=== PATIENT | female | born 1970 | race Caucasian/White ===

== ENCOUNTER 2021-09-07 14:33 | Emergency (ER) | payer OTHER, SELFPAY ==
[2021-09-07 17:25] VITALS: BP 190/102; PULSE 86; RESP 19; TEMP 36.7; O2SAT 99; BMI 28.1
[2021-09-07 17:46] LABS: UTC Influenza A Antigen Negative (Negative); UTC Influenza B Antigen Negative (Negative)
--- NOTE | 2021-09-07 17:58 | HMH.EDUTC ---
[facility] Disposition Clinical Impression: URI (upper respiratory infection) Qualifiers: URI type: unspecified URI Qualified Code(s): J06.9 - Acute upper respiratory infection, unspecified Disposition: Home, Self-Care Condition on Discharge: Good Instructions: DI for Sinusitis, Sinusitis, Azithromycin Additional Instructions: *Monitor Temp, Over the counter Motrin or Tylenol as directed/as needed Tylenol every 4 hours and Motrin every 6 hours (as long as your family doctor has told you that you can take it) for fever or pain. and straight to ER if unable to lower temp less than 101.0 after medication given *Warm salt water gargles may help to soothe the throat *Throat Lozenges *Warm fluids like tea with honey may help to soothe the throat *Sleep elevated *Humidifier/Vaporizer Follow up with your [facility] Doctor for re-evaluation of blood pressure Follow up IMMEDIATELY for new or worsening symptoms or no Noticeable improvement over the next 48-72 hours. 911 for difficulty breathing or swallowing You were tested for today for COVID19 your test result should be back in the next 24-48 hours, you may Check your results on the [facility] My Health Portal if you have trouble logging on you may call You was given a handout with instructions for Self Quarantine and Self isolation for while you wait on test results and what to do if they are positive If you are positive the Health Dept will be contacting you also Make sure to take your Vitamins Vit. C Vit D and Zinc if you can take them Prescriptions: Benzonatate [Benzonatate 100mg cap] 100 mg PO Q8HP PRN #15 cap PRN Reason: Cough Transmission Status: Pending to What's in My Handbag # methylPREDNISolone [Medrol 4mg tab] 4 mg PO DIRECTED #21 tab Transmission Status: Pending to What's in My Handbag # Azithromycin [Z-Rubén 250mg Tab] 250 mg PO DIRECTED #6 tab Transmission Status: Pending to What's in My Handbag # Referrals: Provider,Referral, [Primary Care Provider] - As needed Forms: Work/School Release Time of Disposition: 18:09 Medical Decision Making - Blake Inquiry Pt receiving controlled substance: No Blake was queried for this patient: No Vital Signs: 09/07/21 17:25 Temperature 98.1 F Temperature Source Oral Pulse Rate [Right Brachial] 86 Respiratory Rate 19 Blood Pressure [Right Arm] 190/102 H Blood Pressure Mean [Right Arm] 131 Blood Pressure Source [Right Arm] Automatic Cuff Blood Pressure Position [Right Arm] Sitting 02 Sat by Pulse Oximetry 99 Oxygen Delivery Method Room Air - Lab Data Lab results reviewed: Yes: I reviewed the patient's lab results. Lab Results 09/07/21 17:36: Influenza Type A Ag Negative, Influenza Type B Ag Negative Medical Decision Narrative: rechecked blood pressure 169/93 [facility] HPI - General Stated complaint: weakness, cough,runny nose, headache Time Seen by Provider: 09/07/21 17:58 Mode of Arrival: Ambulatory Source of Information: Patient Limitations: No Limitations Description of Symptoms (Recalled from Triage Doc. by RN): PATIENT C/O RUNNY NOSE, COUGH AND WEAKNESS THAT STARTED TUESDAY NIGHT HEENT Symptoms (Recalled from RN notes): Yes Resp Symptoms (Recalled from RN notes): Yes Skin Symptoms (Recalled from RN notes): No MS Symptoms (Recalled from RN notes): No Functional Status (Recalled from RN notes): WNL - History of Present Illness Provider Complaint: Patient state that she has been having body aches, chills, sinus congestion and pressure, and over all not feeling well for several days States that she has taken OTC medications and it hasnt helped States that today she was still not feeling well so she came in Denies any known sick contacts - Related Data Previous Rx's Medication Instructions Recorded Azithromycin [Z-Rubén 250mg Tab] 250 mg PO DIRECTED #6 tab 09/07/21 Benzonatate [Benzonatate 100mg 100 mg PO Q8HP PRN #15 cap 09/07/21 cap] methylPREDNISolone [Medro
[2021-09-07 18:13] VITALS: BP 168/92; PULSE 86; RESP 19; TEMP 36.7; O2SAT 99
[2021-09-07 18:18] LABS: Adenovirus,PCR Not Detected (NotDetected); Bordetella Pertussis Not Detected (NotDetected); Chlamydophila Pneumoniae, PCR Not Detected (NotDetected); Coronavirus 19, PCR Not Detected (NotDetected); Coronavirus 229E Not Detected (NotDetected); Coronavirus NL63 Not Detected (NotDetected); Coronavirus OC43 Not Detected (NotDetected); Coronovirus HKU1,PCR Not Detected (NotDetected); Influenza A, PCR Not Detected (NotDetected); Influenza AH1, 2009 Not Detected (NotDetected); Influenza AH1, PCR Not Detected (NotDetected); Influenza AH3,PCR Not Detected (NotDetected); Influenza B, PCR Not Detected (NotDetected); Mycoplasma Pneumoniae, PCR Not Detected (NotDetected); Parainfluenza 1, PCR Not Detected (NotDetected); Parainfluenza 2, PCR Not Detected (NotDetected); Parainfluenza 3, PCR Not Detected (NotDetected); Parainfluenza 4, PCR Not Detected (NotDetected); Respiratory Syncytial Virus Not Detected (NotDetected); Rhinovirus/Enterovirus Not Detected (NotDetected)
[2021-09-08 02:42] LABS: Human Metapneumovirus Detected (NotDetected)
== END 2021-09-07 18:16 | disposition home or self-care (01) ==
PROVIDERS: Emergency Provider Nurse Practitioner
DX: J06.9 Acute upper respiratory infection, unspecified (principal); B34.8 Other viral infections of unspecified site
CPT/HCPCS: 87581; 87632; 87798; 87804; 99202; C9803; G0463; U0003; U0005

== ENCOUNTER → 2022-02-19 16:07 | Outpatient (CLI) | payer OTHER, SELFPAY ==
--- NOTE | 2022-02-19 16:10 | MM_ITS ---
PROCEDURE INFORMATION: Exam: Bilateral Screening 3D Mammography Exam date and time: 02/19/2022 4:19 PM Age: 51 years old Clinical indication: Screening examination TECHNIQUE: Imaging protocol: Bilateral Screening tomosynthesis and 2D mammography including computer-aided detection (CAD) when performed. COMPARISON: No relevant prior studies available. FINDINGS: MAMMOGRAPHY: Breast composition: The breast is heterogeneously dense, which may obscure small masses. Mass: None. Architectural distortion: No new or suspicious architectural distortion. Calcifications: Diffusely scattered bilateral benign-appearing calcifications are present. No new or suspicious cluster of microcalcifications have developed. Asymmetric density: No new or suspicious asymmetric density is present Skin thickening: None. Axillary adenopathy: None. IMPRESSION: No mammographic evidence of malignancy. Recommend annual screening mammography unless otherwise clinically indicated. ASSESSMENT: BI-RADS category 2: Benign
== END ==
PROVIDERS: Visit Provider Family Medicine
DX: Z12.31 Encounter for screening mammogram for malignant neoplasm of breast (principal)
CPT/HCPCS: 77063; 77067

== ENCOUNTER 2023-04-22 07:30 | Day surgery (SDC) | payer BC, SELFPAY ==
[2023-04-19 09:42] VITALS: BMI 28.1
[2023-04-22 07:46] VITALS: BP 118/68; PULSE 77; RESP 16; TEMP 36.1; O2SAT 99
--- NOTE | 2023-04-22 08:00 | P.PNANES_ITS ---
[facility] Disclaimer: The information contained in this section may have been updated after the patient was seen, as this information can be updated by other users. Surgical History (Updated 04/19/23 @ 09:41 by Madeleine Blanton RN) History of appendectomy History of hysterectomy Family History (Updated 04/19/23 @ 09:41 by Madeleine Blanton RN) Other Family history of Alzheimer's disease Family history of cancer Family history of diabetes mellitus type II Family history of myocardial infarction Family history of stroke Social History (Updated 04/19/23 @ 09:41 by Madeleine Blanton RN) Smoking Status: Current every day smoker tobacco type: cigarettes packs per day: 1 pack-years: 38 alcohol intake: current substance use type: denies use current occupational status: employed Travel in the last 8 weeks: [place] adopted: No caregiver/support person: No household members: none housing: house lives independently: Yes marital status: single education level: high school service: No senior care: No caffeine: Yes special [place] needs: No agree to transfusion: No do you feel safe at home: Yes victim of physical abuse: No victim of emotional abuse: No victim of sexual abuse: No would you like helpful sources: No [facility] Anesthesia Checklist Patient Identification Patient Identification: Verbal (Name & ) Structural Data Admitted From: Home Planned Operative Procedure/s: colonoscopy Consent for Planned Operative Procedure(s) Verified: Yes Airway Assessment Mallampati Score:: Class I C-Spine Mobility Assessed: Yes TMJ Mobility Assessed: Yes Dentition: Good Dentition Neurological Assessment Level of Consciousness: Awake, Alert and Appropriate Anesthesia Plan Anesthesia Risk discussed: Yes Anesthesia Plan: Verified ASA Class: II Anesthesia Type: MAC
[2023-04-22 08:07] VITALS: O2SAT 97
[2023-04-22 08:50] VITALS: BP 90/51; PULSE 61; RESP 18; TEMP 36.8; O2SAT 97
[2023-04-22 09:00] VITALS: BP 88/41; PULSE 74; RESP 18; O2SAT 99
--- NOTE | 2023-04-22 09:01 | HMH.SCOPE ---
Procedure: Date: 04/22/23 Patient Date of :: 1970 Procedure Performed:: Total colonoscopy to terminal ileum with polypectomy using cold snare and biopsy forceps Indications:: Patient is a 52-year-old female referred by Dr. Shepherd for initial screening colonoscopy Performing Provider:: Antonio Hoff MD Referring Provider:: Sourav Shepherd MD Sedation:: MAC sedation Procedure:: Patient history was obtained and appropriate physical examination was performed. Patient's medications and allergies were reviewed. Informed consent was obtained after explaining the benefits, alternatives, and risks of the procedure including, but not limited to, bleeding, perforation, missed lesions, and adverse reaction to anesthesia medications. Patient was transported to endoscopy procedure room. Patient was connected to monitoring devices. Throughout the procedure the patient's blood pressure, pulse, and oxygen saturations were monitored continuously. Patient identification and planned procedure were verified by the staff. Patient was positioned in lateral decubitus position. Digital anorectal exam was performed. Variable stiffness Olympus colonoscope was inserted and advanced under direct visualization to the cecum. Adequacy of the colonic preparation was noted. The colonoscope was advanced a short distance into the terminal ileum. The colonoscope was then slowly withdrawn while carefully examining the color, texture, anatomy, and integrity of the mucosoa circumferentially. Within the rectum retroflexion was performed. Colonoscope was then withdrawn. . There was some redundancy of the sigmoid colon which required some abdominal pressure for advancement of the colonoscope to the right colon. There was particulate liquid stool in the right colon which was able to be cleared. The appendiceal remnant was identified and the colonoscope was advanced into the terminal ileum. With thorough trans colonoscopic irrigation and suctioning colonoscope was withdrawn through the colon. In the proximal descending colon there is a tiny probable polyp removed with cold cutting snare. In the descending colon there were a couple of additional extremely tiny diminutive polyps removed with cold forceps. The rectosigmoid region there were a couple of diminutive hyperplastic appearing polyps removed with cold biopsy forceps. . Findings:: Diminutive polyps as stated above Mild sigmoid diverticulosis Recommendations:: Repeat colonoscopy pending pathology. Likely 3 to 5 years Complications:: None immediately apparent Estimated blood obtained (mL): 2 Colonoscopy Component Colonoscopy Component Was a colonoscopy performed during today's procedure?: Yes Recommended follow up colonoscopy of at least 10 years?: No If no, follow up colonoscopy recommended in ___ years?: Unclear Reason for not recommending >/= 10 yr follow-up interval?: Polyps
[2023-04-22 09:13] VITALS: BP 122/60; PULSE 71; RESP 18; O2SAT 100
== END 2023-04-22 09:20 | disposition home or self-care (01) ==
PROVIDERS: PCP Family Medicine; Visit Provider Surgery
PROC: 0DJD8ZZ Inspection of Lower Intestinal Tract, Via Natural or Artificial Opening Endoscopic (ICD-10-PCS; CPT 45385; principal; 2023-04-22 08:30)
DX: Z12.11 Encounter for screening for malignant neoplasm of colon (principal); K57.30 Diverticulosis of large intestine without perforation or abscess without bleeding; D12.4 Benign neoplasm of descending colon
CPT/HCPCS: 45385; 45380; J2704

== ENCOUNTER 2025-06-10 15:48 | Outpatient (CLI) | payer BC, SELFPAY ==
--- OUTSIDE RECORDS SUMMARY | 2024-03-02 10:15 | XMS_ITS ---
[facility] Address [address] [place] [id number] Care Team Providers Care Wire Winder Name Role Phone Sourav Shepherd Unavailable [phone] Allergies No Known Allergies Results Component Value Reference Range Notes Urinalysis - Inhouse Reviewed date:03/02/2024 03:37:55 PM Interpretation: Performing Lab: Notes/Report: Color/Clarity yellow/clear Leuk neg Nitrite neg Urobili 33 Protein neg pH 7.0 Blood 2+ Sp. Gr. 1.010 Ketone neg Bili neg TEN-UTI panel Reviewed date:03/05/2024 09:35:37 AM Interpretation:Negative Performing Lab: Notes/Report: Negative REASON FOR VISIT 6 month check, possible bladder infection Medications Medication SIG (Take, Route, Frequency, Duration) Notes Start Date End Date Status Unisom SleepTabs 25 MG 1 tab(s) orally o nce a day; Duration: 7 day(s) Active Vitamin B-12 250 MCG 1 tab(s) orally onc e a day; Duration: 30 day(s) Active Vitamin D3 10 MCG (400 UNIT) 1 tab(s) or ally once a day; Duration: 30 day(s) Active Triamcinolone Acetonide 0.1 % 1 belle applied topically 2 times a day 10/14/2022 Active buPROPion HCl 75 MG 1 tablet Orally Twic e a day; Duration: 90 days 04/13/2023 Active Lisinopril 30 MG 1 tab(s) orally once a day; Duration: 90 days Active Cranberry 250 MG as directed Orally Active Macrobid 100 MG 1 capsule with food Orally every 12 hrs; Duration: 5 day(s) 03/02/2024 Active Social History Tobacco Use: Social History Observation Description Date Details (start date - stop date) Current Smoker NA - NA CURRENT TOBACCO USE: Question Answer Notes Are you a: current smoker When did you start smoking? 16 y ears of age How often do you smoke cigarettes? every day How many cigarettes a day do you smoke? 6-10 1/2 a pack everyday Problems Problem Type SNOMED Code ICD Code Onset Dates Problem Status W/U Status Risk Notes Problem Pure hypercholesterolemia (854470202) Pure hypercholesterolemia (E78.00) Active confirmed Vital Signs Blood pressure systolic 132 mm Hg 03/02/20 24 Blood pressure diastolic 80 mm Hg 024 Heart Rate 114 /min 03/02/2024 Height 69 in 03/02/2024 Weight 196.4 lbs 03/02/2024 BMI 29.00 kg/m2 03/02/2024 Encounters Encounter Location Date Provider Diagnosis [facility] [address] [facility] [address] [place] [address], [place] [id number] 03/02/2024 Sourav Shepherd Primary hypertension I10 ; Acute UTI N39.0 ; Pure hypercholesterolemia E78.00 and Hyperglycemia R73.9 Assessments Encounter Date Diagnosis (ICD Code) Assessment Notes Treatment Notes Treatment Clinical Notes Section Notes 03/02/2024 Primary hypertension (ICD-10 - I10) 03/02/2024 Acute UTI (ICD-10 - N39.0) 03/02/2024 Pure hypercholesterolemia (ICD-10 - E78.00) 03/02/2024 Hyperglycemia (ICD-1 0 - R73.9) 03/02/2024 Other Patient will return to the office tomorrow morning for the following fasting labs: CMP, TSH w/ reflex, urine Microalb, A1c, Lipid Plan Of Treatment Medication Medication Name Sig Start Date Stop Date Notes Lisinopril 30 MG 1 tab(s) orally once a day; Duration: 90 days Macrobid 100 MG 1 capsule with food Orally every 12 hrs; Duration: 5 day(s) 03/02/2024 Treatment Notes Assessment Notes Other Patient will return to the office tomorrow morning for the following fasting labs: CMP, TSH w/ reflex, urine Microalb, A1c, Lipid Next Appt Details Follow Up: via phone to repo rt test results, Reason: Progress Notes * JOSEFINA ROSSI:1970 (54 yo F)Acc No.[id number]:03/02/2024 Progress Notes Patient: VANESA MCFARLAND Provider: Tone Shepherd M.D. :1970 A ge:53 Y S ex:Female Date:03/02/2024 Address:[address] [place] [address] , [place], [id number] Subjective: * Chief Complaints: * 1 . 6 month check, possible bladder infection. * HPI: C ardiology: 53 year old female presents with c/o Blood Pressure Elevated?Pt here for 6 mo f/u on hypertension, states she is doing well and does not have any concerns.? U rology: c/o frequent urination P t complains of frequent urinating with small amount of output, associated with discomfort that started last night. * ROS: D ERMATOLOGY: no R julius. n o H beata. G ASTROENTEROLOGY: no N ausea. n o V omiting. U ROLOGY: no D ifficulty urinating. n o B lood in urine. * Medical History: A llergic Rhinitis, Hypertension, Cigarette smoker, Colon polyps. * Surgical History: H ysterectomy 2008, Appendectomy 2015, colonoscopy 2022. * Hospitalization/Major Diagno stic Procedure: D enies Past Hospitalization. * Family History: F ather: alive. M other: alive. 2 brother(s) . . Diabetes:grandmother Hypertension:father and grandparents Stroke:grandmother Cancer:uncle and cousin. * Social History: C URRENT TOBACCO USE: Yes A re you a: c urrent smoker, W hen did you start smoking? 16 years of age, H ow often do you smoke cigarettes? e very day, H ow many cigarettes a day do you smoke? 6 -10 1/2 a pack everyday. C affeine: yes, frequency: coffee, tea, soft drinks (4-6 cups/drinks a day). Marital Status: . Alcohol: yes, Mixed drinks, 1/week. 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 Recreational drug use: no. * Medications: T aking Cranberry 250 MG Capsule as directed Orally , Taking Unisom SleepTabs 25 MG Tablet 1 tab(s) orally once a day , Taking Vitamin B-12 250 MCG Tablet 1 tab(s) orally once a day , Taking Vitamin D3 10 MCG (400 UNIT) Tablet 1 tab(s) orally once a day , Taking Triamcinolone Acetonide 0.1 % Cream 1 belle applied topically 2 times a day , Taking buPROPion HCl 75 MG Tablet 1 tablet Orally Twice a day , Taking Lisinopril 30 MG Tablet 1 tab(s) orally once a day , Medication List reviewed and reconciled with the patient * Allergies: N .K.D.A. Objective: * Vitals: W t:196.4, Temp:98.0, BP:132/80, HR:114, Nurse:marquez, Ht: 69, BMI:29.00. * Examination: C ardiology: General Appearance: p leasant, NAD. H EENT: u nremarkable. H eart sounds: R RR, normal S1, S2. L ungs: c lear, no rales or wheezes.?Extremities: n o leg edema. G eneral Examination: Back: no CVA tenderness. Assessment: * Assessment: 1. P rimary hypertension - I10 (Primary) 2 . A cute UTI - N39.0 ?3. P ure hypercholesterolemia - E78.00 4 . H yperglycemia - R73.9 Plan: * Treatment: 2. A cute UTI Start Macrobid Capsule, 100 MG, 1 capsule with food, Orally, every 12 hrs, 5 day(s), 10, Refills 0.? L AB: Urinalysis - Inhouse (Collection Date & Time - 03/02/2024) Value Reference Range C olor/Clarity yellow/clear * L euk neg * N itrite neg * U robili 33 * P rotein neg * p H 7.0 * B lood 2+ * S p. Gr. 1.010 * K etone neg * B luz neg * Mitra Fierro 03/02/2024 2:27:20 PM > , Provider reviewed results while patient in office. ?LAB: TEN-UTI panel (Collection Date & Time - 03/02/2024)?Negative* Bertha Reid 03/05/2024 9:26:4 2 AM > pt started on MacrobidKMitra villanueva 03/05/2024 9:34:52 AM > Pt informed of neg UTI panel 3.?Others? Notes: Patient will return to the office tomorrow morning for the following fasting labs: CMP, TSH w/ reflex, urine Microalb, A1c, Lipid?? * Procedure Codes: 8 1002 Urinalysis, no micro, 99041 SPECIMEN HANDLING * Follow Up: v ia phone to report test results * Images: Billing Information: * Visit Code: 37610 Office Visit, Est Pt., Level 4. * Procedure Codes: 33251 Urinalysis, no micro. 90056 SPECIMEN HANDLING. * Electronic signature of Mariah Shepherd MD on 06/10/2025 at 03:51 PM EDT Sign off status: Pending * Provider: Tone Shepherd M.D. Date: 0 03/02/2024 Generated for Memei ng/Ceciliag/eTransmitting on: 1 03:51 PM EDT History and Physical Notes * HPI (History of Present Illness) Category Sub-Category Detail Notes Category Not es Cardiology Blood Pressure Elevated Pt here for 6 mo f/u on hypertension, states she is doing well and does not have any concerns Urology frequent urination Pt complains of frequent urinating with small amount of output, associated with discomfort that started last night Examination Category Sub-Category Detail Notes Category Not es General Examination Back: no CVA tenderness Cardiology Lungs: clear, no rales or wheezes HEENT: unremarkable Heart sounds: RRR, normal S1, S2 Extremities: no leg edema General Appearance: pleasant, NAD
--- OUTSIDE RECORDS SUMMARY | 2024-03-03 04:35 | XMS_ITS ---
Author Organization [facility] Address [address] [facility] [address] [place] [id number] Care Team Providers Care Camera Repair Technician Name Role Phone Sourav Shepherd Unavailable [phone] Results Component Value Reference Range Notes Glycohemoglobin A1c (in hous e) Reviewed date:03/05/2024 09:49:57 AM Interpretation: Normal Performing Lab: Notes/Report: Normal glycohemoglobin 5.4% 5 - 6.5 % P-Comprehensive Metabolic Pa ashok (CMP) Reviewed date:03/05/2024 09:49:57 AM Interpretation: Normal Performing Lab: Notes/Report: CLIA: [id number] Daniel Castellon MD, [facility] [address] [place] [address] , [address], [place] [address] Test performed by [employer], [facility] Sodium 140 135-145 mmol/L Potassium 4.6 3.5-5.3 mmol/L Chloride 103 97-108 mmol/L CO2 22 22-32 mmol/L Glucose 95 65-99 mg/dL BUN 12 6-20 mg/dL Creatinine 0.90 0.50-1.00 mg/dL Calcium 9.6 8.6-10.4 mg/dL eGFR by Creatinine 75 >59 mL/min/1.73m2 Protein 7.1 6.0-8.3 g/dL Albumin 4.5 3.5-5.3 g/dL Alkaline Phosphatase 97 35-121 IU/L ALT (SGPT) 13 <5-47 IU/L AST (SGOT) 13 <5-40 IU/L Bilirubin, Total <0.2 <0.2-1.2 mg/dL A/G Ratio 1.7 1.1-2.5 mg/dL P-Lipid Panel Reviewed date:03/05/2024 09:49:57 AM Interpretation:chol 211, non-hdl 161, ldl 136 Performing Lab: Notes/Report: Test performed by [facility] [address] [place] [address] [address], [place] [address] Daniel Castellon MD, [facility] CLIA: [id number] Cholesterol 211 <200 mg/dL Triglycerides 126 <150 mg/dL HDL Cholesterol 50 >39 mg/dL Cholesterol / HDL Ratio 4.22 0.00-4.44 Ratio Non-HDL Cholesterol 161 <130 mg/dL LDL Cholesterol (Calculation) 136 <130 mg/dL LDL Cholesterol Levels* Less than 100 mg/dL Optimal 100 to 129 mg/dL Near Optimal/ Above Optimal 130 to 159 mg/dL Borderline High 160 to 189 mg/dL High 190 mg/dL and above Very High * Categories as recommended by the 2004 ATPIII guidelines LDL/HDL Ratio 2.7 <3.3 Ratio LDL Cholesterol Patient History Test Date: 02/11/2023 LDL Results: 132 Units: mg/dL % Change: - Test Date: 03/03/2024 LDL Results: 136 Units: mg/dL % Change: +3% P-TSH reflex to FT4 Reviewed date:03/05/2024 09:49:57 AM Interpretation: Normal Performing Lab: Notes/Report: Test performed by [facility] [address] , [address], [place] [address] Daniel Castellon MD, [facility]er CLIA: [id number] TSH reflex to FT4 1.57 0.43-5.25 mU/L P-Microalbumin/Creatinine, R andom Urine Sample Reviewed date:03/06/2024 11:48:37 AM Interpretation:not performed per pathgroup, needs recollected Performing Lab: Notes/Report: not performed per pathgroup, needs recollected REASON FOR VISIT LABS Medications Medication SIG (Take, Route, Frequency, Duration) Notes Start Date End Date Status Triamcinolone Acetonide 0.1 % 1 belle applied topically 2 times a day 10/14/2022 Active Lisinopril 30 MG 1 tab(s) orally once a day; Duration: 90 days Active buPROPion HCl 75 MG 1 tablet Orally Twic e a day; Duration: 90 days 04/13/2023 Active Macrobid 100 MG 1 capsule with food Orally every 12 hrs; Duration: 5 day(s) 03/02/2024 Active Vitamin D3 10 MCG (400 UNIT) 1 tab(s) or ally once a day; Duration: 30 day(s) Active Unisom SleepTabs 25 MG 1 tab(s) orally o nce a day; Duration: 7 day(s) Active Cranberry 250 MG as directed Orally Active Vitamin B-12 250 MCG 1 tab(s) orally onc e a day; Duration: 30 day(s) Active Encounters Encounter Location Date Provider Diagnosis [facility] [address] [facility] [address] [place] [phone] 03/03/2024 Sourav Sunset Primary hypertension I10 ; Pure hypercholesterolemia E78.00 ; Hyperglycemia R73.9 and Weight gain R63.5 Assessments Encounter Date Diagnosis (ICD Code) Assessment Notes Treatment Notes Treatment Clinical Notes Section Notes 03/03/2024 Primary hypertension (ICD-10 - I10) 03/03/2024 Pure hypercholesterolemia (ICD-10 - E78.00) 03/03/2024 Hyperglycemia (ICD-1 0 - R73.9) 03/03/2024 Weight gain (ICD-10 - R63.5) Plan Of Treatment No Information Progress Notes * KADE ROSSIB:1970 (54 yo F)Acc No.[id number]:03/03/2024 Patient: VANESA MCFARLAND Provider: Tone Shepherd M.D. :1970 A ge:53 Y S ex:Female Date:03/03/2024 Address:[address] [place] [address] , [place], [id number] Subjective: * Chief Complaints: * 1 . LABS. * Medical History: * Medications: T aking Cranberry 250 MG [...] tab(s) orally once a day , Taking Macrobid 100 MG Capsule 1 capsule with food Orally every 12 hrs , Medication List reviewed and reconciled with the patient Objective: * Vitals: Assessment: * Assessment: 1. P rimary hypertension - I10 (Primary) 2 . P ure hypercholesterolemia - E78.00 3 . H yperglycemia - R73.9 4 . W eight gain - R63.5? Plan: * Treatment: Value Reference Range A /G Ratio 1.7 1.1-2.5 - mg/dL * A lbumin 4.5 3.5-5.3 - g/dL * A lkaline Phosphatase 97 35-121 - IU/L * A LT (SGPT) 13 <5-47 - IU/L * A ST (SGOT) 13 <5-40 - IU/L * B ilirubin, Total <0.2 <0.2-1.2 - mg/dL * B UN 12 6-20 - mg/dL * C alcium 9.6 8.6-10.4 - mg/dL * C hloride 103 97-108 - mmol/L * C O2 22 22-32 - mmol/L * C reatinine 0.90 0.50-1.00 - mg/dL * G lucose 95 65-99 - mg/dL * P otassium 4.6 3.5-5.3 - mmol/L * S odium 140 135-145 - mmol/L * P rotein 7.1 6.0-8.3 - g/dL * e GFR by Creatinine 75 >59 - mL/min/1.73m2 * Bertha Ried 03/05/2024 9:49:5 1 AM >See phone encounter ?LAB: P-Microalbumin/Creatinine, Random Urine Sample (Collection Date & Time - 03/06/2024)?not performed per pathgroup, needs recollected* Bertha Reid 03/06/2024 11:48: 09 AM > patient to return to office next week sometime to drop off specimen. 2.?Pure hypercholesterolemia?LAB: P-Lipid Panel (Collection Date & Time - 03/03/2024 08:33 AM)?chol 211, non-hdl 161, ldl 136* Value Reference Range C holesterol / HDL Ratio 4.22 0.00-4.44 - Ratio * C holesterol 211 H <200 - mg/dL * H DL Cholesterol 50 >39 - mg/dL * L DL Cholesterol (Calculation) 136 H <130 - mg/d L * L DL/HDL Ratio 2.7 <3.3 - Ratio * N on-HDL Cholesterol 161 H <130 - mg/dL * T riglycerides 126 <150 - mg/dL * Bertha Reid 03/05/2024 9:49:5 1 AM >See phone encounter 3.?Hyperglycemia?LAB: Glycohemoglobin A1c (in house) (Collection Date & Time - 03/03/2024)? Normal* Value Reference Range g lycohemoglobin 5.4% 5 - 6.5 % * Mitra Fierro 03/03/2024 8:42:18 AM > Bertha Reid 03/05/2024 9:49:51 AM >See phone encounter 4.?Weight gain?LAB: P-TSH reflex to FT4 (Collection Date & Time - 03/03/2024 08:33 AM)? Normal* Value Reference Range T SH reflex to FT4 1.57 0.43-5.25 - mU/L * Bertha Reid 03/05/2024 9:49:5 1 AM >See phone encounter * Procedure Codes: 3 6416 CAPILLARY BLOOD DRAW, 84736 GLYCATED HEMOGLOBIN TEST, Modifiers: QW * Images: Billing Information: * Visit Code: * Procedure Codes: 20940 CAPILLARY BLOOD DRAW. 94533 GLYCATED HEMOGLOBIN TEST. Modifiers: QW * Electronic signature of Mariah Shepherd MD on 06/10/2025 at 03:51 PM EDT Sign off status: Pending * Provider: Tone Shepherd M.D. Date: 0 03/03/2024 Generated for Bryson conde/David/eTdannysmitting on: 1 03:51 PM EDT
--- OUTSIDE RECORDS SUMMARY | 2025-04-11 11:15 | XMS_ITS ---
Author Organization [facility] Address [address] [place] [phone] Care Team Providers Care Wad Impregnator Name Role Phone Sourav Shepherd Unavailable [phone] FloydNahed hanna Unavailable [phone] Allergies No Known Allergies Results Component Value Reference Range Notes Influenza Screen (in house) Reviewed date:04/12/2025 09:03:17 AM Interpretation: Performing Lab: Notes/Report: results neg CBC Fingerstick (in house) Reviewed date:04/12/2025 09:03:17 AM Interpretation: Performing Lab: Notes/Report: wbc 4.6 3.5 - 10 lym 47.7 15 - 50 mid 11.4 2 - 15 gran 40.9 35 - 80 rbc 4.30 3.5 - 5.5 hgb 12.7 11.5 - 16.5 hct 37.1 35 - 55 mcv 86.3 75 - 100 mch 29.4 25 - 35 mchc 34.1 31 - 38 plat 188 100 - 400 Covid test (in house) Reviewed date:04/12/2025 09:03:17 AM Interpretation: Performing Lab: Notes/Report: Result: neg REASON FOR VISIT sinus infection Medications Medication SIG (Take, Route, Frequency, Duration) Notes Start Date End Date Status Vitamin D3 10 MCG (400 UNIT) 1 tab(s) or ally once a day; Duration: 30 day(s) Active Triamcinolone Acetonide 0.1 % 1 belle applied topically 2 times a day 10/14/2022 Active buPROPion HCl 75 MG 1 tablet Orally Twic e a day; Duration: 90 days 04/13/2023 Active Lisinopril 30 MG 1 tab(s) orally once a day; Duration: 90 days Active Macrobid 100 MG 1 capsule with food Orally every 12 hrs; Duration: 5 day(s) 03/02/2024 Active Bromfed DM 2-30-10 MG/5ML 5-10 mL Orally four times a day, prn 04/11/2025 Active Cranberry 250 MG as directed Orally Active Unisom SleepTabs 25 MG 1 tab(s) orally o nce a day; Duration: 7 day(s) Active Vitamin B-12 250 MCG 1 tab(s) orally onc e a day; Duration: 30 day(s) Active Social History Tobacco Use: Social History Observation Description Date Details (start date - stop date) Current Smoker NA - NA CURRENT TOBACCO USE: Question Answer Notes Are you a: current smoker When did you start smoking? 16 y ears of age How often do you smoke cigarettes? every day How many cigarettes a day do you smoke? 6-10 1/2 a pack everyday Vital Signs Blood pressure systolic 146 mm Hg 04/11/20 25 Blood pressure diastolic 88 mm Hg 025 Heart Rate 94 /min 04/11/2025 Height 69 in 04/11/2025 Weight 205.6 lbs 04/11/2025 BMI 30.36 kg/m2 04/11/2025 Encounters Encounter Location Date Provider Diagnosis [facility] [address] [phone] 04/11/2025 Nahed Ca Acute URI J06.9 Assessments Encounter Date Diagnosis (ICD Code) Assessment Notes Treatment Notes Treatment Clinical Notes Section Notes 04/11/2025 Acute URI (ICD-10 - J06.9) fluids, rest, supportive measures Plan Of Treatment Medication Medication Name Sig Start Date Stop Date Notes Bromfed DM 2-30-10 MG/5ML 5-10 mL Orally four times a day, prn 04/11/2025 Treatment Notes Assessment Notes Acute URI fluids, rest, suppor tive measures Next Appt Details Follow Up: prn, Reason: Progress Notes * KADE ROSSIB:1970 (54 yo F)Acc No.[id number]:04/11/2025 Progress Notes Patient: Heather GUTIERREZCEEPRECIOUSA Provider: POLLY Leon :1970 A ge:54 Y S ex:Female Date:04/11/2025 Address:[facility] [address] , [place], [id number] Subjective: * Chief Complaints: * 1 . Sinus infection. * HPI: E NT/respiratory: Pt states these symptoms started Tuesday and its just getting worse. Pt states she has been around COVID. 54 year old female presents with c/o cough. c/o Fever?low grade. c/o ear pain b ilateral. c/o headache. c/o body aches. G astroenterology: c/o Diarrhea. * ROS: D ERMATOLOGY: no R julius. n o H beata. G ASTROENTEROLOGY: no N ausea. n o V omiting. n o D iarrhea.? U ROLOGY: no D ifficulty urinating. n o B lood in urine. * Medical History: A llergic Rhinitis, Hypertension, Cigarette smoker, Colon polyps. * Surgical History: H ysterectomy 2008, Appendectomy 2015, colonoscopy 2022. * Family History: F ather: alive. M [...] Alcohol: yes, Mixed drinks, 1/week. 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 Recreational drug use: no. * Medications: [...] Allergies: N .K.D.A. Objective: * Vitals: W t: 205.6, Temp: 98.3, BP: 146/88, HR: 94, Nurse: pe, Ht: 69, BMI:30.36. * Examination: E NT/Respiratory: General Appearance: N AD. E ars: a uditory canals normal bilaterally, TM's WNL. N ose : t urbinates red, congested. S inuses : t bonifacio maxillary sinuses bilaterally. O ral cavity : e rythema without exudate on pharynx. N shannon : n o cervical lymphadenopathy. H eart : R RR, normal S1 S2, no murmurs. L ungs:?clear to auscultation bilaterally. Assessment: * Assessment: 1. Homar holm URI - J06.9 (Primary) Plan: * Treatment: Value Reference Range r esults neg * Lashell Kate 04/11/2025 04 :24:25 PM EDT > Provider reviewed results while patient in office. ?LAB: CBC Fingerstick (in house) (Collection Date & Time - 04/11/2025)* Value Reference Range w bc 4.6 3.5 - 10 * l ym 47.7 15 - 50 * m id 11.4 2 - 15 * g ran 40.9 35 - 80 * r bc 4.30 3.5 - 5.5 * h gb 12.7 11.5 - 16.5 * h ct 37.1 35 - 55 * m cv 86.3 75 - 100 * m ch 29.4 25 - 35 * m chc 34.1 31 - 38 * p lat 188 100 - 400 * Lashell Kate 04/11/2025 04 :31:18 PM EDT > Provider reviewed results while patient in office. ?LAB: Covid test (in house) (Collection Date & Time - 04/11/2025)* Value Reference Range R esult: neg * Lashell Kate 04/11/2025 04 :23:54 PM EDT > Provider reviewed results while patient in office. Notes: fluids, rest, supportive measures?? * Procedure Codes: 8 7804 Flu Test- Nasal Swab, Modifiers: QW , 37166 CBC WITH AUTO DIFF, 32764 CAPILLARY BLOOD DRAW, 09688 COVID TEST IN HOUSE, Modifiers: QW * Follow Up: p rn * Images: Billing Information: * Visit Code: 48154 Office Visit, Est Pt., Level 3. * Procedure Codes: 40962 Flu Test- Nasal Swab. Modifiers: QW 65912 CBC WITH AUTO DIFF. 58267 CAPILLARY BLOOD DRAW. 92570 COVID TEST IN HOUSE. Modifiers: QW * Electronic signature of POLLY Hobbs on 06/10/2025 at 03:51 PM EDT Sign off status: Pending * Provider: POLLY Leon Date: 0 04/11/2025 Generated for Memei ng/Fajean-paulg/eTransmitting on: 1 03:51 PM EDT History and Physical Notes * HPI (History of Present Illness) Category Sub-Category Detail Notes Category Not es ENT/respiratory ear pain bilateral cough Fever low grade headache body aches Gastroenterology Diarrhea Examination Category Sub-Category Detail Notes Category Not es ENT/Respiratory Oral cavity : erythema without exudate on pharynx Sinuses : tender maxillary sin uses bilaterally Ears: auditory canals norm al bilaterally, TM's WNL Neck : no cervical lymphade nopathy Heart : RRR, normal S1 S2, n o murmurs Lungs: clear to auscultatio n bilaterally General Appearance: NAD Nose : turbinates red, luis daniel ested
--- OUTSIDE RECORDS SUMMARY | 2025-04-30 04:49 | XMS_ITS ---
Author Organization [facility] Address [address] [facility] [address] [address] [place] [phone] Care Team Providers Care Acquisition Professional Name Role Phone Chandler, Sourav Unavailable [phone] REASON FOR VISIT due faizan Encounters Encounter Location Date Provider Diagnosis [facility] [address] [place] [phone] 04/30/2025 Sourav Shepherd Breast cancer screening Z12.31 Assessments Encounter Date Diagnosis (ICD Code) Assessment Notes Treatment Notes Treatment Clinical Notes Section Notes 04/30/2025 Breast cancer screening (ICD-10 - Z12.31) Plan Of Treatment Pending Test Test Name Order Date Mammogram 04/30/2025 Progress Notes * KADE ROSSIB:1970 (54 yo F)Acc No.[id number]:04/30/2025 Patient: VANESA MCFARLAND :1970 A ge:54 Y S ex:Female Address:[address] [place], [address] Subjective: * Chief Complaints: * D ue faizan * Medical History: * Surgical History: * Hospitalization/Major Diagno stic Procedure: * Medications: Objective: * Vitals: * Physical Examination: Assessment: * Assessment: 1. B reast cancer screening - Z12.31 (Primary) Plan: * Treatment: * Procedure Codes: * true * Date: Generated for Printi ng/Faxing/eTransmitting on: 03:51 PM EDT
--- NOTE | 2025-06-10 15:51 | MM_ITS ---
PROCEDURE INFORMATION: Exam: MG Bilateral Screening 3D Mammography Exam date and time: 06/10/2025 4:04 PM Age: 54 years old Clinical indication: Screening examination TECHNIQUE: Imaging protocol: Bilateral Screening tomosynthesis and 2D mammography including computer-aided detection (CAD) when performed. COMPARISON: 1. MG MM DIG SCREENING MAMM BI W/CAD 02/19/2022 4:19 PM 2. MG SCREENING MAMMOGRAM 02/25/2017 10:17 AM FINDINGS: MAMMOGRAPHY: Breast composition: The breasts are heterogeneously dense, which may obscure small masses. Mass: None. Architectural distortion: 3 subcentimeter foci of architectural distortion/change in the right breast. The first is noted in the posterior right upper outer quadrant , the second is noted in the middle third of the right 12 o'clock axis, and a third is noted in the middle to posterior third of the right approximate 9 o'clock axis. The patient denies any prior right breast surgery Calcifications: No suspicious calcifications. Asymmetric density: None. Skin thickening: None. Axillary adenopathy: None. IMPRESSION: Patient to be recalled for spot compression views of the right breast in the CC and MLO projections, a full 90 degree lateral view, and right breast ultrasound for further evaluation of 3 foci of right breast distortion/change. ASSESSMENT: BI-RADS Category 0: Incomplete- Need Additional Imaging Evaluation
--- OUTSIDE RECORDS SUMMARY | 2025-06-10 15:51 | XMS_ITS | Clinical Summary ---
Author Organization [facility] Address [address] [place] [address] Care Team Providers Care International Coordinator Name Role Phone Addi Howell MD Primary Care Provider [phone] Medications etodolac (LODINE) 400 MG tablet TAKE ONE TABLET BY MOUTH TWICE A DAY NEEDED 60 tablet 02/26/2016 Active Social History Tobacco Use Types Packs/Day Years Used Date Smoking Tobacco: Never Assessed Abuse Screen Answer Date Recorded Unsafe at Home or Work/School Not on file Feels Threatened by Someone? Not on file 07/2023 Does Anyone Keep You from Co ntacting Others or Doint Things Outside the Home? Not on file 06/15/2023 Physical Sign of Abuse Present Not on file 1 Housing Stability Answer Date Recorded Current Living Arrangements Not on file 06/05 Potentially Unsafe Housing Conditions Not on neto e 06/15/2023 Family and Community Support Answer Sunny e Recorded Help with Day-to-Day Activities Not on file 06/15/2023 Lonely or Isolated Not on file 06/15/2023 Employment Answer Date Recorded Do you want help finding or keeping work or a tessa b? Not on file 06/15/2023 Disabilities Answer Date Recorded Concentrating, Remembering, or Making Decisions Difficulty Not on file 06/15/2023 Doing Errands Independently Difficulty Not on fi le 06/15/2023 Education Answer Date Recorded Help with school or training? Not on file Preferred Language Not on file 06/15/2023 Comments Unknown Sex and Gender Information Value Date Recorded Sex Assigned at Not on file Legal Sex Female 12:11 PM EDT Gender Identity Not on file Sexual Orientation Not on file Last Filed Vital Signs Vital Sign Reading Time Taken Comments Blood Pressure 152/72 09/30/2015 12:06 PM EST Pulse 74 09/30/2015 12:06 PM EST Temperature 36.4 C (97.6 F) 09/30/2015 12:06 PM EST Respiratory Rate 16 09/30/2015 12:0 6 PM EST Oxygen Saturation - - Inhaled Oxygen Concentration - - Weight 86.2 kg (189 lb 15.9 oz) 016 12:06 PM EST Height 174 cm (5' 8.5 ) 09/30/2015 12:0 6 PM EST Body Mass Index 28.47 09/30/2015 12:06 PM EST Plan of Treatment Health Maintenance Due Date Last Done Comments ANNUAL PHYSICAL 1970 Annual Gynecologic Pelvic and Breast Exam 1970 HEPATITIS C SCREENING 1970 TDAP/TD VACCINES (1 - Tdap) 11/20/1987 MAMMOGRAM 2008 COLOGUARD 2013 COLON CANCER SCREENING 5 YEAR SIGMOIDOSCOPY 2013 COLONOSCOPY [address] CANCER SCREENING [address] COLONOGRAPHY 2013 FECAL OCCULT BLOOD TEST 2013 FIT Testing (1 year) 2013 Pneumococcal Vaccine 50+ (1 of 1 - PCV) 2018 ZOSTER VACCINE (1 of 2) 2018 INFLUENZA VACCINE 04/05/2025 Care Teams International Coordinator Relationship Specialty Start Date End Date Addi Howell MD [address] [place] [address] PCP - General 04/30/15
--- OUTSIDE RECORDS SUMMARY | 2025-06-10 15:51 | XMS_ITS | Patient Health Record ---
Author Organization [facility] Address [address] [facility] [address] [place] [phone] Care Team Providers Care Hose Tender Name Role Phone Sourav Shepherd Unavailable [phone] FloydNahed hanna Unavailable [phone] Allergies No Known Allergies Results Component Value [...] AM Interpretation: Performing Lab: Notes/Report: Result: neg Reason For Referral No Information Medications Medication SIG (Take, Route, Frequency, Duration) Notes Start Date End Date Status Bromfed DM 2-30-10 MG/5ML 5-10 mL Orally [...] 12 hrs; Duration: 5 day(s) 03/02/2024 Active Immunizations Vaccine Route Administration Date Status Comme nts COVID 19 Pfizer Unknown 04/21/2021 Administered COVID 19 Pfizer Unknown 05/25/2021 Administered Social History Tobacco Use: Social History Observation [...] Problem Status W/U Status Risk Notes Problem Tobacco user (920151327) Cigarette nicotine dependence without complication (F17.210) Active confirmed Problem Pure hypercholesterolemia (784257505) Pure hypercholesterolemia (E78.00) Active confirmed Problem Primary hypertension (29646732) Primary hypertension (I10) Active confirmed Vital Signs Heart Rate 94 /min 04/11/2025 Blood pressure diastolic 88 mm Hg 04/11/2025 Height 69 in 04/11/2025 Blood pressure systolic 146 mm Hg 04/11/2025 Weight 205.6 lbs 04/11/2025 BMI 30.36 kg/m2 04/11/2025 Encounters Encounter Location Date Provider Diagnosis [facility] [address] [facility] [address] [facility] [address] [place] [phone] 04/11/2025 Nahed Ca Acute URI J06.9 [facility] [address] [facility] [address] [place] [phone] 04/30/2025 Sourav Shepherd Breast cancer screening Z12.31 Assessments Encounter Date Diagnosis (ICD Code) Assessment Notes Treatment Notes Treatment Clinical Notes Section Notes 04/11/2025 Acute URI (ICD-10 - J06.9) fluids, rest, supportive measures 04/30/2025 Breast cancer screening (ICD-10 - Z12.31) Plan Of Treatment Pending Test Test Name Order Date Mammogram 04/30/2025 Insurance Providers Payer Name Payer Address Payer Phone Subscriber Number Group Number Insured Name Patient Relationship to Insured Coverage Start Date Coverage End Date [facility] [address] [place] [address] [phone] [id number] VANESA ROSSI Self - patient is the insured Medical (General) History Medical History History ICD Code Allergic Rhinitis Hypertension Cigarette smoker Colon polyps Surgical History Surgery Date(Month/Year) Hysterectomy 2008 Appendectomy 2015 colonoscopy 2022 Hospitalization History Reason Date(Month/Year)
== END 2025-06-10 23:59 | disposition home or self-care (01) ==
LOC: RAD 15:49
PROVIDERS: PCP Family Medicine; Visit Provider Family Medicine
DX: Z12.31 Encounter for screening mammogram for malignant neoplasm of breast (principal); R92.333 Mammographic heterogeneous density, bilateral breasts; R92.8 Other abnormal and inconclusive findings on diagnostic imaging of breast
CPT/HCPCS: 77063; 77067

== ENCOUNTER 2025-07-15 14:51 | Outpatient (CLI) | payer BC, SELFPAY ==
--- NOTE | 2025-07-15 14:53 | MM_ITS ---
PROCEDURE INFORMATION: Exam: US Right Breast, Complete MG Diagnostic Breast Tomosynthesis MG Right Diagnostic Breast Tomosynthesis Exam date and time: 07/15/2025 3:22 PM Age: 54 years old Clinical indication: Recall on the basis of screening mammogram 06/10/2025 for further evaluation of 3 foci of right breast distortion/change. TECHNIQUE: Imaging protocol: Complete ultrasound of all four quadrants of the right breast and the retroareolar regions, including ultrasound of the axilla when performed. Diagnostic tomosynthesis and 2D mammography including computer-aided detection (CAD) when performed. Unilateral or bilateral exam. Right Diagnostic tomosynthesis and 2D mammography including computer-aided detection (CAD) when performed. Unilateral or bilateral exam. COMPARISON: MG MM DIG MAMM DX UNILAT RT CAD 07/15/2025 3:00 PM MG MM DIG SCREENING MAMM BI W/CAD 02/19/2022 4:19 PM FINDINGS: MAMMOGRAPHY: Breast composition: The breast is heterogeneously dense, which may obscure small masses. Density based on the most recent screening mammogram report. Breast mammogram findings: Several persistent focal areas of architectural distortion in the upper-outer quadrant - the dominant one in the middle 3rd, measures up to 4 cm, and has related indeterminate calcifications, MLO momo spot image [id number] frame 42 and CC momo spot image [id number] frame 31. There are probably 3 adjacent areas of architectural distortion, limited spot compressions. ULTRASOUND: Breast ultrasound findings: Ultrasound images of right breast including the retroareolar region, all 4 quadrants and the axilla. Limited sonography with several possible ill-defined hypoechoic regions, in the upper inner quadrant up to 1 cm, lower outer quadrant at 8 o'clock 5 cm from the nipple, at 9 o'clock 4 cm from the nipple. Also, at 9 o'clock 4 cm from the nipple, 2 adjacent oval hypoechoic masses with echogenic centers, nonspecific possibly cystic or intramammary lymph nodes, avascular, measuring 0.4 x 0.3 x 0.2 cm and 0.3 x 0.3 x 0.2 cm. No axillary adenopathy demonstrated. IMPRESSION: Several persistent abnormal regions of architectural distortion in the right upper outer quadrant, the dominant one in the middle 3rd has related microcalcifications, and stereotactic biopsy sampling is recommended. Limited right sonography with multiple hypoechoic regions. On the right at 9 o'clock, 2 adjacent probably benign masses, despite suspicious findings as above, further management advised after stereotactic biopsy. After stereotactic biopsy, suggest adding MRI for extent of disease and additional evaluation. ASSESSMENT: BI-RADS Category 4: Suspicious.
--- OUTSIDE RECORDS SUMMARY | 2025-07-15 15:06 | XMS_ITS | Clinical Summary ---
Author Organization [facility] Address [address] [place] [address] Care Team Providers Care Federal Agent Name Role Phone Addi Howell MD Primary Care Provider [phone] Medications etodolac (LODINE) 400 MG tablet TAKE [...] 2) 2018 INFLUENZA VACCINE 04/05/2025 Care Teams Federal Agent Relationship Specialty Start Date End Date Addi Howell MD [address] [place] [address] PCP - General 04/30/15
== END 2025-07-15 23:59 | disposition home or self-care (01) ==
LOC: RAD 14:51
PROVIDERS: PCP Family Medicine; Visit Provider Family Medicine
DX: N63.15 Unspecified lump in the right breast, overlapping quadrants (principal); R92.331 Mammographic heterogeneous density, right breast; R92.8 Other abnormal and inconclusive findings on diagnostic imaging of breast
CPT/HCPCS: 76641; 77061; 77065; G0279

== ENCOUNTER 2025-07-24 09:21 | Outpatient (CLI) | payer BC, SELFPAY ==
--- NOTE | 2025-07-24 | MM_ITS ---
FINAL REPORT CLINICAL HISTORY: SURGICAL SPECIMEN FINDINGS: Specimen radiograph of core biopsy shows no suspicious calcifications within the tissue specimens. However this is not an unexpected finding since primary findings were distortion with questionable calcifications Authenticated and ERN
--- NOTE | 2025-07-24 09:26 | MM_ITS ---
FINAL REPORT CLINICAL HISTORY: RIGHT BREAST CALCS FINDINGS: STEREOTACTIC GUIDED LEFT BREAST BIOPSY, CLIP PLACEMENT, AND POST BIOPSY MAMMOGRAM Indication: Abnormal mammogram/density/mass Findings: The stereotactic guided breast biopsy procedure was explained in detail to the patient including potential risk and benefits. The patient voiced an understanding of the procedure, was given an opportunity to ask questions, after which informed consent was obtained. The patient was positioned upon the stereotactic unit in the upright position. The breast was prepped in the usual sterile fashion. Subcutaneous soft tissues were anesthetized with lidocaine with epinephrine. Subsequently, with intermittent stereotactic guidance, the stereotactic biopsy needle was advanced into the breast in the region of the mammographic abnormality corresponding to recent diagnostic mammogram. Multiple vacuum assisted core samples were obtained. Sampling was thought to be adequate and the biopsy clip marker was deployed in the region of biopsy. Additional imaging as detailed below was performed. Post procedure routine CC and MLO view mammogram: Post biopsy changes. Biopsy marker clip noted to be in the appropriate location. Patient tolerated the procedure well. No immediate complications. IMPRESSION: 1. Technically successful stereotactic guided biopsy of distortion within left breast 2. Biopsy marker clip deployed 3. Post biopsy mammogram obtained as above Histopathology results reveal invasive ductal carcinoma... Pathology is concordant with mammographic findings. Recommend surgical and medical oncologic follow-up. In addition since multiple areas of distortion more identified with only the most evident 1 sample, breast MRI may be considered to assess for multifocal disease. Authenticated and ERN
--- NOTE | 2025-07-24 09:28 | MM_ITS ---
FINAL REPORT CLINICAL HISTORY: CLIP PLACEMENT S/P BIOPSY FINDINGS: MAMMOGRAM RIGHT TECHNIQUE: Standard digital 2-D views COMPARISON: 06/10/25 DENSITY: There are scattered areas of fibroglandular density FINDINGS: Post biopsy marker clip is noted to be in satisfactory position. Postbiopsy changes are noted. IMPRESSION: Biopsy marker clip in good position ASSESSMENT: A post-procedure mammogram is used to confirm the position and deployment of a breast tissue marker after a biopsy RECOMMENDATION: Given findings of invasive ductal carcinoma, surgical and medical oncologic consultation needed Authenticated and ERN
[2025-07-24] MEDS: HYDROCODONE/APAP 5/325 MG TABLET 1 TAB PO (09:45)
[2025-07-24] MEDS: RAD-SODIUM CHLORIDE 0.9% 250ML BAG 100 ML IV (12:10)
[2025-07-24] MEDS: LIDOCAINE 1% W/EPI 1:100,000 20ML VIAL IJ (12:10)
== END 2025-07-24 23:59 | disposition home or self-care (01) ==
LOC: RAD 09:22
PROVIDERS: PCP Family Medicine; Visit Provider Family Medicine
DX: C50.911 Malignant neoplasm of unspecified site of right female breast (principal); R92.321 Mammographic fibroglandular density, right breast
CPT/HCPCS: 19081; 76098; 77065; J2004; J7050